=== PATIENT | female | born 1950 | race Caucasian/White ===

== ENCOUNTER 2016-03-25 03:09 | Inpatient (IN) ==
[2016-03-25] MEDS ORDERED: NALOXONE 0.4 MG/ML VIAL IV STA (03:17)
[2016-03-25] MEDS ORDERED: NALOXONE 0.4 MG/ML VIAL ONE (03:30)
[2016-03-25 03:32] LABS: Basophils % 0.3 % (0.0-0.8); Eosinophils % 0.3 % (0.00-10.9); Hematocrit 42.7 VOL% (35.7-47.0); Hemoglobin 13.4 GM/DL (12.0-16.0); Immature Granulocytes % 0.4 %; Immature Granulocytes Absolute 0.06 #; Lymphocytes # 0.8 10*3/uL (1.4-4.0); Lymphocytes % 5.4 % (21.3-54.2); Mean Corpuscular HGB Conc 31.4 GM/DL (32-36); Mean Corpuscular Hemoglobin 29 PG (27-34); Mean Corpuscular Volume 93.6 FL (87-102); Mean Platelet Volume 11.5 FL (9.6-12.0); Monocytes # 0.8 10*3/uL (0.11-0.8); Monocytes % 5.5 % (1.7-12.7); Neutrophils # 12.5 10*3/uL (1.4-7.4); Neutrophils % 88.1 % (38.7-73.9); Platelet Count 181 10*3/uL (130-400); Red Blood Count 4.56 10*6/uL (3.8-5.5); Red Cell Distribution Width 14.4 % (9.3-17.3); White Blood Count 14.2 10*3/uL (4.5-13.71)
[2016-03-25 03:52] LABS: Calcium 9.1 MG/DL (8.5-10.1); Magnesium 2.1 MG/DL (1.8-2.4); Osmolality,Calculated 278.5 MOS/KG (273-304); Potassium 3.9 MMOL/L (3.5-5.1)
[2016-03-25] MEDS ORDERED: ALPRAZolam 0.25 MG TABLET PO PRN (04:26)
[2016-03-25] MEDS ORDERED: chlorproMAZINE 25 MG TABLET PO PRN (04:26)
[2016-03-25] MEDS ORDERED: MAGNESIUM HYDROXIDE SUSP 30 ML UDCUP PO PRN (04:26)
[2016-03-25] MEDS ORDERED: chlorproMAZINE INJ 50 MG in SODIUM CHLORIDE 0.9% 100 ML IV PRN (04:26)
[2016-03-25] MEDS ORDERED: ACETAMINOPHEN 325 MG TABLET PO PRN (04:26)
[2016-03-25] MEDS ORDERED: LOPERAMIDE 2 MG CAPSULE PO PRN ×2 (04:26)
[2016-03-25] MEDS ORDERED: chlorproMAZINE INJ 25 MG in SODIUM CHLORIDE 0.9% 100 ML IV PRN (04:26)
[2016-03-25] MEDS ORDERED: ONDANSETRON 4 MG/2 ML VIAL IV PRN (04:26)
[2016-03-25] MEDS ORDERED: diphenhydrAMINE CAP 25 MG CAPSULE PO PRN (04:26)
[2016-03-25] MEDS ORDERED: LACTULOSE 20 GM/30 ML UDCUP PO PRN (04:26)
[2016-03-25] MEDS ORDERED: BENZTROPINE 2 MG/2 ML AMP IV PRN (04:26)
[2016-03-25] MEDS ORDERED: guaiFENesin 200 MG/10 ML UDCUP PO PRN (04:26)
[2016-03-25] MEDS ORDERED: MYLANTA/LIDO VISC 2:1 300 ML BOTTLE SWISH/SWAL PRN (04:26)
[2016-03-25] MEDS ORDERED: TEMAZEPAM 7.5 MG CAPSULE PO PRN (04:26)
[2016-03-25] MEDS ORDERED: ALUMINUM/MAGNES/SIMETH MAX STR 30 ML UDCUP PO PRN (04:26)
[2016-03-25] MEDS ORDERED: PROMETHAZINE INJ 25 MG in SODIUM CHLORIDE 0.9% 50 ML IV PRN (04:26)
[2016-03-25] MEDS ORDERED: MYLANTA/LIDO VISC 2:1 300 ML BOTTLE SWISH/SPIT PRN (04:26)
--- NOTE | 2016-03-25 04:26 | Emergency Department Note ---
Angela Florez Sierra, am scribing for, and in the presence of, Davie Bailon MD 03:23. Uvaldo Florez Robert M, MD, personally performed the services described in this documentation, ascribed by Nesha Miller in my presence, and it is both accurate and complete 413 . Arrival - Arrival Chief Complaint: Headache Stated Complaint: HEADACHE, NAUSEA ED Nursing Triage Note: C/O Headache/Nausea/vomiting. Pt is currently being treated for Breast CA- unknown last treatment. No family here at present. Pt is oriented to Person and place, but disoriented to time. Mode of Arrival: Stretcher Limitations: No Limitations Source: RN Notes Reviewed Time Seen by Provider: 03/25/16 03:17 - History of Present Illness HPI Narrative: Pt is a 65 y/o female that was brought to the ED via EMS with c/o headache and N /V that began a few hours ago. Pt did not give report but did stir when spoken to. Pt is currently being treated for breast CA that has spread and is terminal. Pt's oncologist is Dr. Chavis and he preformed pt's double mastectomy. Pt does not have a fever and was not given narco en route. No family is present with pt at this time. Onset (ago): hour(s) Consistency: constant Quality: other Allergies/Adverse Reactions: Allergies Allergy/AdvReac Type Severity Reaction Status Date / Time Sulfa (Sulfonamide Allergy ITCHING Verified 07/03/15 09:57 Antibiotics) sulfamethoxazole Allergy ITCHING Verified 07/03/15 09:57 [From Bactrim] tramadol Allergy ITCHING Verified 07/03/15 09:57 trimethoprim [From Bactrim] Allergy ITCHING Verified 07/03/15 09:57 Home Medications: Home Medications Medication Instructions Recorded Confirmed Type Alprazolam [Xanax] 1 mg PO Q8H PRN 01/04/16 03/09/16 History Aspirin [Ecotrin] 81 mg PO DAILY 01/04/16 03/09/16 History Gabapentin 300 mg PO BID 01/04/16 03/09/16 History Oxycodone HCl/Acetaminophen 1 each PO TID PRN 01/04/16 03/09/16 History [Percocet 10-325 mg Tablet] Ondansetron [Ondansetron Odt] 8 mg PO Q4H PRN #20 tab.rapdis 03/10/16 Rx Pantoprazole Tab [Protonix Tab] 40 mg PO DAILY #30 tablet 03/10/16 Rx Review of System - Review of System ROS unobtainable: due to delirium Medical,Surgical,& Family Hx - Medical History Cardio: History of: Hypertension Neurology: History of: Peripheral Neuropathy Endocrine: History of: Diabetes Mellitus (NIDDM) Gastrointestinal: History of: GI Problems (hiatal hernia) Musculoskeletal: History of: Back/Neck Problems (CHRONIC PAIN) Reproductive: History of: Breast Cancer (BILATERAL MASTECTOMY) - Surgical History Cardiac Surgeries: Sugical HX of: Cardiac Catheterization Abdominal Surgeries: Surgical HX of: Cholecystectomy - Family History Family History: Reports;: Family Heart Disease (MOM), Family Hypertension (MOM) - Social History Smoking Status: Smoker, status unknown Frequency of Alcohol Use: None Type of Drug Use: None Exam Vital Signs: Vital Signs Temperature 97.5 F L 03/25/16 03:09 Pulse Rate 83 03/25/16 03:09 Respiratory Rate 14 03/25/16 03:09 Blood Pressure 129/80 03/25/16 03:09 O2 Sat by Pulse Oximetry 91 L 03/25/16 03:09 - General General appearance: alert - Head Head exam: Present: atraumatic, normocephalic - Eye Eye exam: Present: EOMI, other (pinpoint pupils) - ENT ENT exam: Present: mucous membranes moist. Absent: mucous membranes dry - Neck Neck exam: Present: full ROM. Absent: tenderness - Chest Chest inspection: Present: symmetric chest wall rise. Absent: tenderness - Respiratory Respiratory exam: Present: normal lung sounds bilaterally, other (snoring respirations) - Cardiovascular Cardiovascular exam: Present: regular rate, normal rhythm, normal heart sounds - Abdominal Exam Abdominal exam: Present: soft. Absent: tenderness - Extremities Exam Extremities exam: Present: full ROM. Absent: tenderness - Neurological Exam Neurological exam: Present: other (will stir if spoken to) - Skin Skin exam: Present: warm, dry Course - Consultations Consultation #1: Dr. Alberto will admit the patient to Dr. Chavis. Time: 04:26 Results - Labs CBC & BMP: 03/25/16 03:29 03/25/16 03:29 Lab Results: I have reviewed the patients labs Labs: Lab Results WBC 14.2 10*3/uL (4.5-13.71) H 03/25/16 03:29 RBC 4.56 10*6/uL (3.8-5.5) 03/25/16 03:29 Hgb 13.4 GM/DL (12.0-16.0) 03/25/16 03:29 Hct 42.7 VOL% (35.7-47.0) 03/25/16 03:29 MCV 93.6 FL (87-102) 03/25/16 03:29 MCH 29 PG (27-34) 03/25/16 03:29 MCHC 31.4 GM/DL (32-36) L 03/25/16 03:29 RDW 14.4 % (9.3-17.3) 03/25/16 03:29 Plt Count 181 10*3/uL (130-400) 03/25/16 03:29 MPV 11.5 FL (9.6-12.0) 03/25/16 03:29 Neut % (Auto) 88.1 % (38.7-73.9) H 03/25/16 03:29 Lymph % (Auto) 5.4 % (21.3-54.2) L 03/25/16 03:29 Foster % (Auto) 5.5 % (1.7-12.7) 03/25/16 03:29 Eos % (Auto) 0.3 % (0.00-10.9) 03/25/16 03:29 Baso % (Auto) 0.3 % (0.0-0.8) 03/25/16 03:29 Neut # (Auto) 12.5 10*3/uL (1.4-7.4) H 03/25/16 03:29 Lymph # (Auto) 0.8 10*3/uL (1.4-4.0) L 03/25/16 03:29 Foster # (Auto) 0.8 10*3/uL (0.11-0.8) 03/25/16 03:29 Eos # (Auto) 0.0 10*3/uL (0.0-0.87) 03/25/16 03:29 Baso # (Auto) 0.0 10*3/uL (0.0-0.2) 03/25/16 03:29 Immature Gran % 0.4 % 03/25/16 03:29 Nucleated RBC % 0.0 /100WBC 03/25/16 03:29 Immature Gran # 0.06 # 03/25/16 03:29 Nucleated RBCs # 0.00 10*3/uL 03/25/16 03:29 Sodium 139 MMOL/L (136-145) 03/25/16 03:29 Potassium 3.9 MMOL/L (3.5-5.1) 03/25/16 03:29 Chloride 102 MMOL/L (98-107) 03/25/16 03:29 Carbon Dioxide 28 MMOL/L (21-32) 03/25/16 03:29 Anion Gap 12.9 MMOL/L (5.0-15.0) 03/25/16 03:29 BUN 12 MG/DL (7-18) 03/25/16 03:29 Creatinine 0.50 MG/DL (0.55-1.02) L 03/25/16 03:29 GFR Calculation 111 ML/MIN 03/25/16 03:29 BUN/Creatinine Ratio 24.00 RATIO (6.00-20.00) H 03/25/16 03:29 Glucose 131 MG/DL (74-106) H 03/25/16 03:29 Calculated Osmolality 278.5 MOS/KG (273-304) 03/25/16 03:29 Calcium 9.1 MG/DL (8.5-10.1) 03/25/16 03:29 Magnesium 2.1 MG/DL (1.8-2.4) 03/25/16 03:29 - Diagnostic Findings Procedure: Chest x-ray: image reviewed by me (no definite acute abnormality.), CT: image reviewed by me (some motion artifact. No definite acute intracranial amount.) Disposition Clinical Impression: Headache, acute cough, History of breast cancer Case discussed with: patient Disposition: Still a Patient Condition: Stable Time of Disposition: 04:26
[2016-03-25] MEDS ORDERED: SODIUM CHLORIDE 0.9% 1,000 ML IV SCH (04:30)
[2016-03-25] MEDS ORDERED: INFLUENZA VIRUS VACCINE 0.5 ML SYRINGE IM ONE (05:47)
[2016-03-25] MEDS ORDERED: PNEUMOCOCCAL VACCINE (13 VALENT) 0.5 ML SYRINGE IM ONE (05:50)
[2016-03-25] MEDS: PIPERACILLIN/TAZOBACTAM 3,375 MG in SODIUM CHLORIDE 0.9% 100 ML IV SCH ×3 (06:14→22:22)
--- NOTE | 2016-03-25 06:57 | CT Report ---
CT head/brain wo/w con Indication: Metal status changes. History of breast cancer. CT BRAIN WITHOUT CONTRAST DLP: 2910 mGy*cm Comparison: 02/19/2010. Date of admission: 03/25/2016. Technique: Axial noncontrast CT images of the brain were obtained. Findings: Scan was repeated due to significant patient motion. There is mild mucosal thickening of the ethmoid air cells. No acute intracranial hemorrhage, mass or mass effect identified. Mild patchy white matter hypodensity is noted in both convexities. Goodman-white junction is maintained. No volume loss. No destructive bone lesions. Impression: 1. No acute intracranial pathology. 2. Mild chronic small vessel ischemic change. 3. Mild ethmoid sinusitis. PROCEDURE INTERPRETED AT [facility] DEPARTMENT OF RADIOLOGY Final Report Signed by: Alex Harding M.D.
--- NOTE | 2016-03-25 06:58 | XRay Report ---
XR chest 1V portable Indication: Chest pain and shortness of breath. Chest one view: Comparison 03/12/16. Order line cardiomegaly and Mediport catheter but stable. Increased interstitial prominence of the lungs noted diffusely, suspicious for mild edema. No discrete infiltrates are seen. Impression: Mild fluid overload. PROCEDURE INTERPRETED AT [facility] DEPARTMENT OF RADIOLOGY Final Report Signed by: Alex Harding M.D.
[2016-03-25] MEDS ORDERED: ONDANSETRON ODT 4 MG TABLET PO PRN (09:33)
[2016-03-25] MEDS ORDERED: ALPRAZolam 0.5 MG TABLET PO PRN (09:33)
--- NOTE | 2016-03-25 09:37 | Oncology History&Physical ---
Assessment and Plan (1) History of breast cancer Status: Acute Assessment and plan: Initial concerns for pneumonia are probably overrated. Chest x-ray seems more consistent with mild edema. Her labs are unremarkable. We will monitor her mental status for the next 24 hours and then consider for discharge home. A CT of the head was negative for any acute findings Current Visit: Yes History of Present Illness Chief complaint: Altered level of consciousness History of present illness: Ms. 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 The emergency room physician discussed the case with myself and was felt to have some degree of opioid induced somnolence. She did receive Narcan at some point during her triage and initial workup. This morning she remains somnolent but will answer questions when aroused. No family is present. Little history is otherwise obtainable. It is my understanding she is a breast cancer patient of unknown stage and unknown treatment type under the care of Dr. Chavis. She does have alopecia which would indicate recent chemotherapy administration. Home Medications Medication Instructions Recorded Confirmed Type Alprazolam [Xanax] 1 mg PO Q8H PRN 01/04/16 03/25/16 History Aspirin [Ecotrin] 81 mg PO DAILY 01/04/16 03/25/16 History Gabapentin 300 mg PO BID 01/04/16 03/25/16 History Oxycodone HCl/Acetaminophen 1 each PO TID PRN 01/04/16 03/25/16 History [Percocet 10-325 mg Tablet] Ondansetron [Ondansetron Odt] 8 mg PO Q4H PRN #20 tab.rapdis 03/10/16 03/25/16 Rx Pantoprazole Tab [Protonix Tab] 40 mg PO DAILY #30 tablet 03/10/16 03/25/16 Rx Allergies Allergy/AdvReac Type Severity Reaction Status Date / Time Sulfa (Sulfonamide Allergy ITCHING Verified 07/03/15 09:57 Antibiotics) sulfamethoxazole Allergy ITCHING Verified 07/03/15 09:57 [From Bactrim] tramadol Allergy ITCHING Verified 07/03/15 09:57 trimethoprim [From Bactrim] Allergy ITCHING Verified 07/03/15 09:57 Medical,Surgical,& Family Hx - Medical History Cardio: History of: Hypertension Neurology: History of: Peripheral Neuropathy Endocrine: History of: Diabetes Mellitus (NIDDM) Gastrointestinal: History of: GI Problems (hiatal hernia) Musculoskeletal: History of: Back/Neck Problems (CHRONIC PAIN) Reproductive: History of: Breast Cancer (BILATERAL MASTECTOMY) - Surgical History Cardiac Surgeries: Sugical HX of: Cardiac Catheterization Abdominal Surgeries: Surgical HX of: Cholecystectomy - Family History Family History: Reports;: Family Heart Disease (MOM), Family Hypertension (MOM) - Social History Smoking Status: Smoker, status unknown Frequency of Alcohol Use: None Type of Drug Use: None ROS unobtainable: due to mental status Exam - Constitutional Vitals: Period Temp Pulse Resp BP Sys/Bishop Pulse Ox Last 24 Hr 97.1 F-97.7 F 81-97 14-20 99-123/52-72 95-95 General appearance: under weight - Head Head Exam: Present: normocephalic, atraumatic - Eye Eye Exam: Present: EOMI, other (Pupils are 3 mm bilaterally and symmetric). Absent: conjunctival injection, periorbital swelling, scleral icterus Pupils: Present: PERRL - ENT ENT exam: Present: normal external ear exam - Neck Neck exam: Present: normal inspection. Absent: lymphadenopathy - Respiratory Respiratory exam: Present: CTAB. Absent: accessory muscle use - Cardiovascular Cardiovascular exam: Present: RRR - GI/Abdominal GI/Abdominal exam: Absent: mass, tenderness - Neurological Exam Neurological exam: Present: altered - Skin Skin exam: Present: warm, dry Results - Labs CBC & BMP: 03/25/16 03:29 03/25/16 03:29
[2016-03-25] MEDS: PANTOPRAZOLE 40 MG TABLET PO SCH (10:06)
[2016-03-25] MEDS: oxyCODONE/ACETAMINOPHEN 5-325 MG TABLET PO PRN ×3 (10:06→20:45)
[2016-03-25] MEDS: GABAPENTIN 300 MG CAPSULE PO SCH (20:45)
[2016-03-26] MEDS: PIPERACILLIN/TAZOBACTAM 3,375 MG in SODIUM CHLORIDE 0.9% 100 ML IV SCH (05:57)
[2016-03-26] MEDS: oxyCODONE/ACETAMINOPHEN 5-325 MG TABLET PO PRN (06:03)
--- NOTE | 2016-03-26 07:12 | Physician Query Form ---
CLICK EDIT DOCUMENT TO SELECT QUERY ANSWER --> OK --> SIGN Linette Bailon RN, CCDS Certified Clinical [employer] W) [phone] (f) [phone] [email or web address]: Make your selection(s) from the choices in EACH section by typing an "x" and enter comments in the comment section. Please use your independent medical judgment in providing your response. This request does not imply that any particular answer is desired or expected. CLINICAL INDICATORS: (Providers should not edit this section) The medical record indicates that the patient was admitted with somnolence, decrease level of consciousness---felt to have some degree of opioid induced somnolence and the patient had a CT of brain done. Based on the above, could you clarify the appropriate diagnosis, if significant , that supports the above abnormalities and additional evaluation, monitoring, and/or treatment rendered: ( ) Somnolence was not thought to be due to accidental OD of opioids ( ) Somnolence was thought to be due to accidental OD of opioids ( x) Somnolence was due to overuse of prescribed meds ( ) Other, please specify: ( ) Clinically unable to determine COMMENTS: Use of terms such as suspected, likely, or probable (associated with a specific diagnosis that is being evaluated, monitored, or treated as if it exists) are acceptable and can be restated in the discharge summary if not ruled out. MTDD
--- NOTE | 2016-03-26 07:52 | Discharge Summary ---
Hospital Course - Hospital Course Hospital Course: Patient with breast cancer receiving docetaxel chemotherapy under the direction of Dr. Chavis who is admitted with altered mental status. The patient is awake this morning and reports simply becoming excessively fatigued. She denies fever or cough at this time. Her CT of the head was unremarkable on admission. She did receive Narcan during her initial workup. I will plan to continue her same home medications. She is overdue for chemotherapy and I have asked for this to be arranged this following March 31 at the cancer clinic. Her labs are unremarkable. I have reviewed her x-ray and I do not feel clinically that she has pneumonia therefore no additional antibiotics are to be prescribed. She will be discharged to home. She reports a daughter who is usually present as her primary caregiver. No family was available during my rounds at the hospital. Diagnosis - Discharge Diagnosis (1) History of breast cancer Status: Acute Discharge Plan - Discharge Medications Continue Aspirin [Ecotrin] 81 mg PO DAILY Oxycodone HCl/Acetaminophen [Percocet 10-325 mg Tablet] 1 each PO TID PRN PRN Reason: Pain Gabapentin 300 mg PO BID Alprazolam [Xanax] 1 mg PO Q8H PRN PRN Reason: Anxiety Pantoprazole Tab [Protonix Tab] 40 mg PO DAILY #30 tablet Ondansetron [Ondansetron Odt] 8 mg PO Q4H PRN #20 tab.rapdis PRN Reason: Nausea - Follow Up or Referral - Forms/Instructions Exam - Constitutional Vitals: Period Temp Pulse Resp BP Sys/Bishop Pulse Ox Last 24 Hr 96.3 F-96.7 F 69-96 16-20 116-133/63-70 93-96 DS: Provider Date of admission: 03/25/16 04:26 Primary care physician: Frankie Chiu Attending physician on admission: Alex Chavis MD Consults: 03/25/16 05:45 Consult to Dietitian [CONS] Routine Reason for Dietitian: Dietary Consult Discharging clinician: Alex Alberto MD
[2016-03-26] MEDS ORDERED: HEPARIN LOCK FLUSH 500 UNIT/5 ML SYRINGE IV PRN (08:31)
[2016-03-26] MEDS ORDERED: ASPIRIN EC 81 MG TABLET PO SCH (09:00)
[2016-03-26] MEDS ORDERED: PANTOPRAZOLE 40 MG TABLET PO SCH (09:00)
[2016-03-26] MEDS: PANTOPRAZOLE 40 MG TABLET PO SCH (09:09)
[2016-03-26] MEDS: GABAPENTIN 300 MG CAPSULE PO SCH (09:09)
[2016-03-26 11:03] VITALS: BP 138/63
== END 2016-03-26 09:35 | disposition home or self-care (01) | DRG 918 ==
LOC: EDBD → EDUNIT# → N.ED 03:09 → N.EDINP 04:26 → N.4E 05:10
PROVIDERS: ADMIT Specialist; ATTEND Specialist

== ENCOUNTER 2017-08-01 23:57 | Observation (INO) ==
[2017-08-02] MEDS ORDERED: MORPHINE 4 MG/1 ML VIAL IV STA (00:02)
[2017-08-02] MEDS ORDERED: ENOXAPARIN 100 MG/ML SYRINGE SUBCUT STA (00:02)
[2017-08-02] MEDS ORDERED: ONDANSETRON 4 MG/2 ML VIAL IV STA (00:02)
[2017-08-02] MEDS ORDERED: NITROGLYCERIN 2% OINT 1 INCH/GM PACK TOP STA (00:02)
[2017-08-02 00:42] LABS: Alanine Aminotransferase 10 U/L (13-56); Albumin 3.7 G/DL (3.4-5.0); Alkaline Phosphatase 81 U/L (45-117); Aspartate Amino Transferase 10 U/L (0-37); Bilirubin,Total < 0.39 MG/DL (0.2-1.0); Blood Urea Nitrogen 7 MG/DL (7-18); Calcium 8.5 MG/DL (8.5-10.1); Glucose 108 MG/DL (74-106); Potassium 3.1 MMOL/L (3.5-5.1); Sodium 143 MMOL/L (136-145)
[2017-08-02 00:47] LABS: Basophils # 0.1 10*3/uL (0.0-0.2); Basophils % 0.7 % (0.0-0.8); Eosinophils # 0.2 10*3/uL (0.0-0.87); Eosinophils % 1.9 % (0.00-10.9); Hematocrit 40.6 VOL% (35.7-47.0); Hemoglobin 13.2 GM/DL (12.0-16.0); Immature Granulocytes % 1.3 %; Immature Granulocytes Absolute 0.13 #; Lymphocytes # 3.2 10*3/uL (1.4-4.0); Lymphocytes % 30.7 % (21.3-54.2); Mean Corpuscular HGB Conc 32.5 GM/DL (32-36); Mean Corpuscular Hemoglobin 29 PG (27-34); Mean Corpuscular Volume 90.2 FL (87-102); Monocytes # 0.7 10*3/uL (0.11-0.8); Monocytes % 7.2 % (1.7-12.7); Neutrophils % 58.2 % (38.7-73.9); Platelet Count 232 T/CUMM (130-400); Red Cell Distribution Width 13.6 % (9.3-17.3); White Blood Count 10.3 T/CUMM (4-12)
[2017-08-02] MEDS ORDERED: ALPRAZolam 0.25 MG TABLET PO PRN (02:28)
[2017-08-02] MEDS ORDERED: ONDANSETRON 4 MG/2 ML VIAL IV PRN (02:38)
[2017-08-02] MEDS ORDERED: oxyCODONE/ACETAMINOPHEN 5-325 MG TABLET PO PRN (02:46)
[2017-08-02] MEDS ORDERED: tiZANidine 4 MG TABLET PO PRN (02:46)
[2017-08-02] MEDS ORDERED: ENOXAPARIN 40 MG/0.4 ML SYRINGE SUBCUT SCH (03:00)
[2017-08-02] MEDS ORDERED: NITROGLYCERIN SL 0.4 MG TABLET SL PRN (03:01)
[2017-08-02] MEDS ORDERED: MORPHINE 4 MG/1 ML VIAL IV PRN (03:02)
[2017-08-02] MEDS: ALPRAZolam 0.5 MG TABLET PO PRN ×2 (03:36→14:12)
[2017-08-02 07:05] LABS: Basophils # 0.1 10*3/uL (0.0-0.2); Basophils % 0.7 % (0.0-0.8); Eosinophils # 0.1 10*3/uL (0.0-0.87); Eosinophils % 1.4 % (0.00-10.9); Hematocrit 40.2 VOL% (35.7-47.0); Immature Granulocytes % 0.8 %; Immature Granulocytes Absolute 0.08 #; Lymphocytes # 2.8 10*3/uL (1.4-4.0); Lymphocytes % 29.2 % (21.3-54.2); Mean Corpuscular HGB Conc 32.3 GM/DL (32-36); Mean Corpuscular Hemoglobin 29 PG (27-34); Mean Platelet Volume 11.6 FL (9.6-12.0); Monocytes # 0.7 10*3/uL (0.11-0.8); Monocytes % 7.5 % (1.7-12.7); Neutrophils # 5.9 10*3/uL (1.4-7.4); Neutrophils % 60.4 % (38.7-73.9); Platelet Count 204 T/CUMM (130-400); Red Blood Count 4.42 MC/CUMM (3.8-5.5); Red Cell Distribution Width 13.8 % (9.3-17.3); White Blood Count 9.7 T/CUMM (4-12)
[2017-08-02 07:50] LABS: Calcium 8.1 MG/DL (8.5-10.1); Potassium 3.1 MMOL/L (3.5-5.1); Risk Ratio 2.91; Thyroid Stimulating Hormone 2.1 uIU/ml (0.358-3.74); VLDL CHOLESTEROL 22.8 MG/DL
[2017-08-02] MEDS: ASPIRIN EC 81 MG TABLET PO SCH (08:55)
[2017-08-02] MEDS: MORPHINE ER 15 MG TABLET PO SCH ×2 (08:56→20:24)
[2017-08-02] MEDS: GABAPENTIN 400 MG CAPSULE PO SCH ×2 (08:56→18:08)
[2017-08-02] MEDS: PANTOPRAZOLE 40 MG TABLET PO SCH (08:56)
[2017-08-02] MEDS ORDERED: NON-FORMULARY MEDICATION (Alprazolam [Xanax] 1 MG) PO SCH (09:00)
[2017-08-02] MEDS ORDERED: MAGNESIUM SULF RIDER 2 GM in PREMIX 1 EACH IV PRN (13:16)
[2017-08-02] MEDS ORDERED: POTASSIUM CHLORIDE RIDER 10 MEQ in PREMIX 1 EACH IV PRN (13:16)
[2017-08-02] MEDS: POTASSIUM CHLORIDE 20 MEQ TABLET PO PRN ×4 (15:47→22:20)
[2017-08-02] MEDS ORDERED: traZODone 50 MG TABLET PO SCH (21:00)
[2017-08-03] MEDS: ALPRAZolam 0.5 MG TABLET PO PRN ×2 (00:24→15:07)
[2017-08-03] MEDS: GABAPENTIN 400 MG CAPSULE PO SCH ×2 (00:24→12:35)
[2017-08-03] MEDS ORDERED: SODIUM CHLORIDE 0.45% 1,000 ML IV SCH (05:00)
[2017-08-03 05:23] LABS: Basophils # 0.1 10*3/uL (0.0-0.2); Basophils % 0.9 % (0.0-0.8); Eosinophils # 0.2 10*3/uL (0.0-0.87); Eosinophils % 2.2 % (0.00-10.9); Hematocrit 36.7 VOL% (35.7-47.0); Hemoglobin 11.8 GM/DL (12.0-16.0); Immature Granulocytes % 0.7 %; Immature Granulocytes Absolute 0.05 #; Lymphocytes # 2.3 10*3/uL (1.4-4.0); Lymphocytes % 30.9 % (21.3-54.2); Mean Corpuscular HGB Conc 32.2 GM/DL (32-36); Mean Corpuscular Hemoglobin 30 PG (27-34); Mean Corpuscular Volume 92.9 FL (87-102); Monocytes # 0.5 10*3/uL (0.11-0.8); Monocytes % 6.8 % (1.7-12.7); Neutrophils # 4.3 10*3/uL (1.4-7.4); Neutrophils % 58.5 % (38.7-73.9); Platelet Count 191 T/CUMM (130-400); Red Blood Count 3.95 MC/CUMM (3.8-5.5); Red Cell Distribution Width 14.1 % (9.3-17.3); White Blood Count 7.4 T/CUMM (4-12)
[2017-08-03 05:51] LABS: Calcium 8.3 MG/DL (8.5-10.1); Potassium 4.2 MMOL/L (3.5-5.1)
[2017-08-03] MEDS ORDERED: diphenhydrAMINE CAP 25 MG CAPSULE PO ONE (07:00)
[2017-08-03] MEDS ORDERED: DIAZEPAM 5 MG TABLET PO ONE (07:00)
[2017-08-03] MEDS ORDERED: MIDAZOLAM 2 MG/2 ML VIAL ONE (08:18)
[2017-08-03] MEDS ORDERED: HEPARIN/NACL 0.9% 2 UNITS/ML 1,000 ML IV ONE (08:18)
[2017-08-03] MEDS ORDERED: fentaNYL 100 MCG/2 ML VIAL ONE (08:21)
[2017-08-03] MEDS ORDERED: NITROGLYCERIN DRIP 50 MG/250 ML BOTTLE IV ONE (08:37)
[2017-08-03] MEDS ORDERED: VERAPAMIL 5 MG/2 ML VIAL ONE (08:37)
[2017-08-03 08:50] LABS: INR 0.9; PT Patient Result 9.9 SECS
[2017-08-03] MEDS ORDERED: ENOXAPARIN 60 MG/0.6 ML SYRINGE ONE (08:59)
[2017-08-03] MEDS ORDERED: ENOXAPARIN 40 MG/0.4 ML SYRINGE SUBCUT SCH (09:00)
[2017-08-03] MEDS: PANTOPRAZOLE 40 MG TABLET PO SCH (12:34)
[2017-08-03] MEDS: MORPHINE ER 15 MG TABLET PO SCH (12:34)
[2017-08-03] MEDS: ASPIRIN EC 81 MG TABLET PO SCH (12:34)
[2017-08-03 16:53] VITALS: BP 132/78
[2017-08-03] MEDS ORDERED: ATORVASTATIN 20 MG TABLET PO SCH (21:00)
== END 2017-08-03 16:50 | disposition home or self-care (01) ==
LOC: EDBD → EDUNIT# → N.ED 23:57 → N.EDINP 23:57 → SUATTDRO 08-02 02:25 → N.5E 08-02 02:57
PROVIDERS: ADMIT Internal Medicine Infectious Disease; ATTEND Internal Medicine
PROC: CLCCHCL (ICD-10-PCS; 2017-08-03 09:15)